=== PATIENT | female | born 1975 | race American Indian/Alaskan Native ===

== ENCOUNTER 2016-10-23 10:05 | Emergency (ER) | payer OTHER ==
[2016-10-23 10:16] VITALS: BP 133/84; PULSE 108; RESP 20; TEMP 98; O2SAT 100
[2016-10-23] MEDS ORDERED: Naproxen 550 mg Tab PO STA (10:25)
[2016-10-23] MEDS ORDERED: Naproxen 550 mg Tab PO ONE (10:29)
--- NOTE | 2016-10-23 10:54 | C.PDOC ---
History Of Present Illness 41 y/o female presents to ED with complaints of right 5th toe pain and swelling. Patient states this morning she struck her toe on to dresser, admits to history of prior injuries to same toe. She denies sensory changes, discharge , redness, fever or other injuries. Time Seen by Provider: 10/23/16 10:17 Chief Complaint (Nursing): Lower Extremity Problem/Injury History Per: Patient History/Exam Limitations: no limitations Onset/Duration Of Symptoms: Hrs Current Symptoms Are (Timing): Still Present Severity: Mild - Ankle/Foot Description Of Injury: Struck Against Object Past Medical History Reviewed: Historical Data, Nursing Documentation, Vital Signs Vital Signs: Last Vital Signs Temp 98 F 10/23/16 10:13 Pulse 108 H 10/23/16 10:13 Resp 20 10/23/16 10:13 BP 133/84 10/23/16 10:13 Pulse Ox 100 10/23/16 11:00 - Medical History PMH: No Chronic Diseases Family History: States: No Known Family Hx - Social History Hx Alcohol Use: Yes Hx Substance Use: No - Immunization History Hx Tetanus Toxoid Vaccination: No Hx Influenza Vaccination: No Hx Pneumococcal Vaccination: No Review Of Systems Except As Marked, All Systems Reviewed And Found Negative. Constitutional: Negative for: Fever, Chills Cardiovascular: Negative for: Chest Pain Respiratory: Negative for: Shortness of Breath Musculoskeletal: Positive for: Foot Pain (right 5th toe ) Skin: Negative for: Rash Neurological: Negative for: Weakness, Numbness Physical Exam - Physical Exam Appears: Well, Non-toxic, Other (In mild pain) Skin: Normal Color, Warm, No Rash Head: Normacephalic Eye(s): bilateral: Normal Inspection Oral Mucosa: Moist Cardiovascular: Rhythm Regular Respiratory: Normal Breath Sounds, No Rales, No Rhonchi, No Wheezing Extremity: Tenderness ( right 5th toe mild TTP, ROM of right ankle intact), No Calf Tenderness, Capillary Refill (<2 seconds all digits ), No Deformity, Swelling (mild, right 5th toe) Extremity: Bilateral: Normal Color And Temperature Pulses: Left Dorsalis Pedis: Normal, Right Dorsalis Pedis: Normal Neurological/Psych: Oriented x3, Normal Sensation Gait: Steady ED Course And Treatment O2 Sat by Pulse Oximetry: 100 (RA) Pulse Ox Interpretation: Normal Progress Note: Patient given PO naprosyn for pain. Xray of right foot/5th digit ordered and reviewed. Xray (-) for fractures/dislocations. 5th toe robi taped to 4th toe by chief technology officer, and patient placed in ortho [facility]. She was given Rx for pain medication, and instructed to follow up with podiatry within 1 week. Patient understands she should return to ED if symptoms worsen. Reevaluation Time: 11:10 Reassessment Condition: Improved Disposition Counseled Patient/Family Regarding: Studies Performed, Diagnosis, Need For Followup, Rx Given - Disposition Referrals: Podiatry Clinic [Outside] [facility] [Outside] Disposition: HOME/ ROUTINE Disposition Time: 11:10 Condition: STABLE Additional Instructions: FOLLOW UP WITH PODIATRY CLINIC IN 1-2 DAYS USE MEDICATION NEEDED FOR PAIN ELEVATE FOOT MUCH POSSIBLE APPLY ICE FOR FIRST 24 HOURS RETURN TO ER IF SYMPTOMS WORSEN Prescriptions: Naproxen [Naprosyn Tab] 375 mg PO BID PRN #15 tab PRN Reason: pain Instructions: Foot Contusion (ED) Forms: [employer] (Micronesian) Print Language: UZBEK - POA Present On Arrival: Falls Or Trauma - Clinical Impression Clinical Impression: Sprain of toe, fifth, right - Scribe Statement The provider has reviewed the documentation as recorded by the Julissaibbreana Rodriguez All medical record entries made by the Dugn were at my direction and personally dictated by me. I have reviewed the chart and agree that the record accurately reflects my personal performance of the history, physical exam, medical decision making, and the department course for this patient. I have also personally directed, reviewed, and agree with the discharge instructions and disposition.
--- NOTE | 2016-10-23 10:58 | RAD ---
PROCEDURE: Right foot attention 5th toe HISTORY: RIGHT 5TH TOE INJURY R/O FX COMPARISON: Not available TECHNIQUE: Multiple views of right foot attention 5th toe FINDINGS: No evidence of fracture. The joint spaces and articular surfaces are preserved. No significant soft tissue swelling noted. IMPRESSION: No acute fracture identified.
== END 2016-10-23 11:11 | disposition home or self-care (01) ==
LOC: C.ER 10:05
DX: S93.504A Unspecified sprain of right lesser toe(s), initial encounter (principal); W22.03XA Walked into furniture, initial encounter; Y93.9 Activity, unspecified; Y92.008 Other place in unspecified non-institutional (private) residence as the place of occurrence of the external cause